=== PATIENT | male | born 2000 | race Caucasian/White ===

== ENCOUNTER 2023-09-10 12:36 | Emergency (ER) | payer OTHER ==
[2023-09-10] MEDS ORDERED: Morphine 4 MG/ML VIAL ONE (12:55)
[2023-09-10 13:00] LABS: #Eosinphils 0.3 thou/uL (0.0-0.7); #Monocytes 0.5 thou/uL (0.11-0.59); #Neutrophils 3.9 thou/uL (1.40-6.50); %Basophils 0.6 % (0.0-1.0); %Eosinophils 4.2 % (0.0-10.0); %Lymphocytes 26.7 % (21.0-51.0); %Monocytes 7.2 % (0.0-10.0); %Neutrophils 60.5 % (42.0-75.0); Hematocrit 45.5 % (42.0-52.0); Hemoglobin 15.8 g/dL (14.0-18.0); Mean Corpuscular HGB CONC 34.7 g/dL (32.0-36.0); Mean Corpuscular Hemoglobin 32.3 pg (27.0-31.0); Platelet Count 237 10x3/uL (130-400); RBC Distribution Width 11.6 % (11.5-14.5); Red Blood Cell (RBC) Count 4.89 mill/uL (4.70-6.10); White Blood Cell (WBC) Count 6.4 10x3/uL (4.8-10.8)
[2023-09-10 13:41] LABS: ALT (SGPT) 24 U/L (8-55); AST (SGOT) 21 U/L (5-34); Albumin 5.2 g/dL (3.5-5.0); Alkaline Phosphatase 90 U/L (40-110); Anion Gap 14 mmol/L (10-20); BUN (Urea Nitrogen) 12 mg/dL (8.9-20.6); Bilirubin, Total 0.8 mg/dL (0.2-1.2); Calc. Creatinine Clearance 0 mL/min (70-130); Calcium 9.6 mg/dL (7.8-10.44); Carbon Dioxide 23 mmol/L (22-29); Chloride 106 mmol/L (98-107); Estimated GFR 113; Globulin 2.1 g/dL (2.4-3.5); Glucose 105 mg/dL (70-105); Potassium 3.8 mmol/L (3.5-5.1); Protein, Total 7.3 g/dL (6.0-8.3); Sodium 139 mmol/L (136-145)
[2023-09-10] MEDS ORDERED: Ondansetron PF 4 MG/2 ML Vial ONE (13:47)
[2023-09-10] MEDS ORDERED: Ketorolac Tromethamine 30 MG/ML VIAL ONE (13:51)
== END 2023-09-10 14:14 | disposition home or self-care (01) ==
LOC: ERS 12:36
DX: S42.021A Displaced fracture of shaft of right clavicle, initial encounter for closed fracture (principal); V23.49XA Other motorcycle driver injured in collision with car, pick-up truck or van in traffic accident, initial encounter
CPT/HCPCS: 71045; 80053; 85025; 96374; 96375; G0390; J1885; J2270; J2405

== ENCOUNTER 2023-09-21 07:17 | Day surgery (SDC) | payer OTHER ==
[2023-09-17 12:33] VITALS: BMI 34.4
[2023-09-21] MEDS ORDERED: CEFAZOLIN 2 GM VIAL ONE (07:59)
[2023-09-21] MEDS ORDERED: Lidocaine 1% MPF 2 ML VIAL ONE (07:59)
[2023-09-21] MEDS ORDERED: Sodium Chloride 0.9% 100 ML ONE (07:59)
[2023-09-21] MEDS ORDERED: fentaNYL 50 mcg/mL 1 mL Vial ONE (10:02)
[2023-09-21] MEDS ORDERED: Bupivacaine PF 0.5% 30 ML VIAL ONE (10:03)
[2023-09-21] MEDS ORDERED: Midazolam HCl 2 mg/2 ml Vial ONE ×2 (10:03→10:30)
[2023-09-21] MEDS ORDERED: PROPOFOL 20 ML ONE (10:30)
[2023-09-21] MEDS ORDERED: fentaNYL PF 100 MCG/2 ML SYRINGE ONE (10:30)
[2023-09-21] MEDS ORDERED: Lidocaine 1% PF 5 ML VIAL ONE ×2 (10:31→10:32)
[2023-09-21] MEDS ORDERED: Ondansetron PF 4 MG/2 ML Vial ONE ×2 (10:31→10:32)
[2023-09-21] MEDS ORDERED: PROPOFOL 200 MG/20 ML VIAL ONE (10:32)
[2023-09-21] MEDS ORDERED: Bupivacaine HCl 0.5%/Epinephrine 1:200,000/PF 30 ml Vial ONE (10:32)
[2023-09-21] MEDS ORDERED: Lidocaine 1% (PF) 30 ML VIAL ONE (12:40)
[2023-09-21] MEDS ORDERED: Meperidine HCl/PF 25 MG/ML VIAL ONE (13:21)
[2023-09-21] MEDS ORDERED: HYDROcodone/Acetaminophen 5/325 mg Tablet ONE (14:43)
== END 2023-09-21 14:58 | disposition home or self-care (01) ==
LOC: SDC 07:17
PROVIDERS: ATTEND Orthopaedic Surgery
PROC: 0PS904Z Reposition Right Clavicle with Internal Fixation Device, Open Approach (ICD-10-PCS; principal; 2023-09-21)
DX: S42.021A Displaced fracture of shaft of right clavicle, initial encounter for closed fracture (principal); V22.99XA Unspecified rider of other motorcycle injured in collision with two- or three-wheeled motor vehicle in traffic accident, initial encounter
CPT/HCPCS: C1713; C1874; J2001; J2175; J2250; J2405; J2704; J3010; J3490; S0020